=== PATIENT | female | born 1940 | race Caucasian/White ===

== ENCOUNTER → 2019-12-23 | Outpatient (CLI) | payer OTHER ==
[~2019-12-23] MED LIST: ALTACE; GENTAK 3 MG/M3 MG/M1 OP; NORCO 5-325 TA1 EACH PO; ZOCOR
== END ==
LOC: LAB 10:37
PROVIDERS: ATTEND Student in an Organized Health Care Education/Training Program
DX: Z01.812 Encounter for preprocedural laboratory examination (principal); Z20.828 Contact with and (suspected) exposure to other viral communicable diseases